=== PATIENT | female | born 1970 | race African-American/Black ===

== ENCOUNTER 2024-10-08 13:29 | Emergency (ER) | payer OTHER ==
[~2024-10-08] VITALS: Ht 175.3 cm; Wt 79.5 kg
[2024-10-08 13:30] VITALS: PULSE 82; RESP 18; O2SAT 96
[2024-10-08 13:34] VITALS: BP 136/86; PULSE 82; RESP 18; TEMP 97.7; O2SAT 96
--- NOTE | 2024-10-08 13:44 | ED.PDOC ---
Back pain HPI HPI Comments 53 y/o F, BIBA, with PMHx of myasthenia gravis and arthritis presents to the ED for CC of upper extremity. EMS reports, patient is coming from home where she c/o right trapezius and right shoulder pain onset, 0300 this morning (10/08/24). Patient relays, to have chronic pain in this area using lidocaine patches to try and relieve symptoms with no success. Patient relays, taking Gardner for pain however, has recently ran out of her prescription. Patient denies recent fall, injury, or trauma. No other symptoms or modifying factors present at this time. Chief Complaint: Upper Extremity Time Seen by MD: 13:35 Reviewed Notes: Nurses Notes, Pension Fund Manager Notes, Medications, Allergies Allergies: Coded Allergies: Aspirin (Verified Allergy, Mild, 10/08/24) Ibuprofen (Verified Allergy, Mild, 10/08/24) Sulfa Antibiotics (Verified Allergy, Mild, 10/08/24) Home Meds Active Scripts Hydrocodone-Acetaminophen (Hydrocodone Bitartrate/AC 5-325 mg) 1 Tab Tab, 1 TAB PO Q8HP PRN for 7 Days, #21 TAB Prov:JOSE ALBERTO ALICEA MD 10/08/24 Information Source: Patient Mode of Arrival: EMS Timing: Hours Duration: Since onset Location of Back pain: Other (right shoulder, right trapezius) Severity: Moderate Prehospital treatment: Other (lidocaine patch) Onset: Spontaneous History of: Arthritis Modifying Factors: Nothing Associated signs and symptoms: None Past Medical History PAST MEDICAL HISTORY: Arthritis Past Medical History (Other): Myasthenia gravis Surgical History: Cholecystectomy, Surgical History (Other): knee VIDEO GAME REPAIR TECHNICIAN History: Denies all VIDEO GAME REPAIR TECHNICIAN Hx Family History Family History: Unknown Social History Smoker: Cigarettes Alcohol: Occasionally Drugs: Denies Drug Use Lives In: Home Constitutional: denies: chills, diaphoresis, fatigue, fever, malaise, sweats, weakness, others EENTM: denies: blurred vision, double vision, ear bleeding, ear discharge, ear drainage, ear pain, ear ringing, eye pain, eye redness, hearing loss, mouth pain, mouth swelling, nasal discharge, nose bleeding, nose congestion, nose pain, photophobia, tearing, throat pain, throat swelling, voice changes, others Respiratory: denies: cough, hemoptysis, orthopnea, SOB at rest, shortness of breath, SOB with excertion, stridor, wheezing, others Cardiovascular: denies: chest pain, dizzy spells, diaphoresis, Dyspnea on exertion, edema, irregular heart beat, left arm pain, lightheadedness, palpitations, PND, syncope, others Gastrointestinal: denies: abdomen distended, abdominal pain, blood streaked bowels, constipated, diarrhea, dysphagia, difficulty swallowing, hematemesis, melena, nausea, poor appetite, poor fluid intake, rectal bleeding, rectal pain, vomiting, others Genitourinary: denies: abnormal vagina bleeding, burning, dyspareunia, dysuria, flank pain, frequency, hematuria, incontinence, pain, , vagina discharge, urgency, others Neurological: denies: dizziness, fainting, headache, left sided numbness, left sided weakness, numbness, paresthesia, pre-existing deficit, right sided numbness, right sided weakness, seizure, speech problems, tingling, tremors, weakness, others Musculoskeletal: reports: others (righ trapezius and right shoulder ); denies: back pain, gout, joint pain, joint swelling, muscle pain, muscle stiffness, neck pain Integumetry: denies: bruises, change in color, change in hair/nails, dryness, laceration, lesions, lumps, rash, wounds, others Allergic/Immunocompromised: denies: Difficulty Healing, Frequent Infections, H mayra, Itching, others Hematologic/Lymphatic: denies: anemia, blood clots, easy bleeding, easy bruising, swollen glands, others Endocrine: denies: excessive hunger, excessive sweating, excessive thirst, excessive urination, flushing, intolerance to cold, intolerance to heat, unexplained weight gain, unexplained weight loss, others Psychiatric: denies: anxiety, bipolar disorder, depression, hopeless, panic disorder, schizophrenia, sleepless, suicidal, others All Other Systems: Reviewed and Negative Physical Exam General Appearance: Mild Distress HEENT: Normal ENT Inspection, Pharynx Normal, TMs Normal Neck: Full Range of Motion, Non-Tender, Normal, Normal Inspection Respiratory: Chest Non-Tender, Lungs Clear, No Accessory Muscle Use, No Respiratory Distress, Normal Breath Sounds Cardiovascular: No Edema, No JVD, No Murmur, No Gallop, Normal Peripheral Pulses, Regular Rate/Rhythm Breast Exam: Deferred Gastrointestinal: No Organomegaly, Non Tender, No Pulsatile Mass, Normal Bowel Sounds, Soft Genitalia: Deferred Pelvic: Deferred Rectal: Deferred Extremities: No calf tenderness, Normal capillary refill, No pedal edema Musculoskeletal : Location: Right Apperance: Limited ROM, Tenderness: Mild Neurologic: Alert, sales marketing director II-XII nml as Tested, No Motor Deficits, Normal Affect, Normal Mood, No Sensory Deficits Cerebellar Function: Normal Reflexes: Normal Skin: Dry, Normal Color, Warm Lymphatic: No Adenopathy Was a procedure done? Was a procedure done?: No Back Pain Differential Dx Differential Diagnosis: Musculoskeletal Pain, Strain X-Ray, Labs, Meds, VS Vital Signs Date Time Temp Pulse Resp B/P (MAP) Pulse Ox O2 Delivery O2 Flow Rate FiO2 10/08/24 13:34 97.7 82 18 136/86 (103) 96 97.7 Time of 1ST Reevaluation: 14:05 Reevaluation 1ST: Unchanged Patient Education/Counseling: Diagnosis, Treatment, Prognosis, Need For Follow Up Family Education/Counseling: No Family Present Departure 1 Departure Time of Disposition: 13:57 Impression: Primary Impression: Right shoulder strain Qualified Codes: S46.911A - Strain of unspecified muscle, fascia and tendon at shoulder and upper arm level, right arm, initial encounter Disposition: HOME / SELF CARE / HOMELESS Condition: Fair e-Prescriptions Hydrocodone-Acetaminophen (Hydrocodone Bitartrate/AC 5-325 mg) 1 Tab Tab 1 TAB PO Q8HP PRN for 7 Days, #21 TAB Prov: JOSE ALBERTO ALICEA MD 10/08/24 Discharged With: Self Critical Care Note Critical Care Time?: No Stability Stability form required: No Heart Score Heart Score: Heart Score Response (Comments) Value History N/A 0 EKG N/A 0 Age N/A 0 Risk Factors N/A 0 Troponin N/A 0 Total 0 I personally scribed for JOSE ALBERTO ALICEA MD ([email or web address]) on 10/08/24 at 13:44. Electronically submitted by Herlinda Blanchard ([email or web address]). JOSE ALBERTO ALICEA MD Oct 08, 2024 13:44
[2024-10-08] MEDS ORDERED: HYDR-4902 PO (13:53)
[2024-10-08] MEDS: HYDROcodone-ACET 10/325MG TAB PO ONE (13:55)
== END 2024-10-08 14:29 | disposition home or self-care (01) ==
LOC: EDBD 13:29 → ER 13:29
DX: S46.911A Strain of unspecified muscle, fascia and tendon at shoulder and upper arm level, right arm, initial encounter (principal); F17.210 Nicotine dependence, cigarettes, uncomplicated; F10.90 Alcohol use, unspecified, uncomplicated; G70.00 Myasthenia gravis without (acute) exacerbation; M19.90 Unspecified osteoarthritis, unspecified site; Z88.2 Allergy status to sulfonamides; Z88.6 Allergy status to analgesic agent; Z90.49 Acquired absence of other specified parts of digestive tract; Z98.890 Other specified postprocedural states; Z79.899 Other long term (current) drug therapy; X58.XXXA Exposure to other specified factors, initial encounter; Y93.89 Activity, other specified; Y92.89 Other specified places as the place of occurrence of the external cause; Y99.8 Other external cause status; Y90.9 Presence of alcohol in blood, level not specified

== ENCOUNTER 2024-11-30 08:14 | Emergency (ER) | payer OTHER ==
[~2024-11-30] VITALS: Ht 175.3 cm; Wt 88.6 kg
[~2024-11-30 08:14] MED LIST: HYDR-4902 PO
[2024-11-30 08:20] VITALS: TEMP 97.7
[2024-11-30] MEDS ORDERED: ACET500T58 PO (09:30)
[2024-11-30] MEDS ORDERED: AZIT-43 PO (09:30)
--- NOTE | 2024-11-30 09:31 | ED.PDOC ---
Eye-HPI HPI Comments This is a 54 year old female presenting to the ED with chief complaint of sore throat. Patient reports that she has been experiencing right sided throat pain for the past 2 weeks, attributing it to her tonsils which have frequent infections. Patient states Tylenol has provided pain relief every 6 hours. Patient denies any sick contacts Denies chest pain shortness of breath Denies inability to move neck, history of meningitis Denies difficulty swallowing nor persistent salivation Denies fevers chills night sweats Denies persistent cough, runny nose, congestion Denies loss of appetite, unintentional weight loss over the past 3 months Denies voice changes Chief Complaint: Sore Throat Time Seen by MD: 09:26 Primary Care Provider: UTE Godinez Notes: Nurses Notes, Medications, Allergies Allergies: Coded Allergies: Aspirin (Verified Allergy, Mild, 10/08/24) Ibuprofen (Verified Allergy, Mild, 10/08/24) Sulfa Antibiotics (Verified Allergy, Mild, 10/08/24) Home Meds Active Scripts Acetaminophen (Acetaminophen) 500 Mg Tab, 500 MG PO Q6HP PRN for 10 Days, #40 TAB 0 Refills Prov:RANDAL REDDY NP 11/30/24 Azithromycin (Azithromycin) 250 Mg Tab, 250 MG PO DAILY MDD 500 for 5 Days, #6 TAB 0 Refills 2 TABLETS ORALLY ON DAY ONE, THEN 1 TABLET ORALLY DAILY FOR 4 DAYS Prov:RANDAL REDDY NP 11/30/24 Hydrocodone-Acetaminophen (Hydrocodone Bitartrate/AC 5-325 mg) 1 Tab Tab, 1 TAB PO Q8HP PRN for 7 Days, #21 TAB Prov:JOSE ALBERTO ALICEA MD 10/08/24 Information Source: Patient Mode of Arrival: Ambulatory Timing: Weeks Duration: Since onset Prehospital treatment: None Quality: Pain Mouth Location: Pharynx Oropharynx: Red Onset: Spontaneous Throat Exposed to: None Eye Context Recent: Recurrent sore throat History of: None Associated signs and symptoms: Sore Throat Past Medical History PAST MEDICAL HISTORY: Arthritis, Asthma Past Medical History (Other): Heart arrhythmia, geographic tongue, Graves Disease, Myasthenia Gravis Surgical History: Cholecystectomy, Surgical History (Other): Knee surgery SHOP LABORER History: Denies all SHOP LABORER Hx Family History Family History: Reviewed,noncontributory to illness, Unknown Social History Smoker: Cigarettes Alcohol: Occasionally Drugs: Denies Drug Use Lives In: Home Physical Exam Exam Comments Uvula midline, no airway obstruction General Appearance: No Apparent Distress, Normal HEENT: Normal ENT Inspection, Pharyngeal Erythema, TMs Normal Neck: Full Range of Motion, Non-Tender, Normal, Normal Inspection Respiratory: Chest Non-Tender, Lungs Clear, No Accessory Muscle Use, No Respiratory Distress, Normal Breath Sounds Cardiovascular: No Murmur, No Gallop, Regular Rate/Rhythm Breast Exam: Deferred Gastrointestinal: No Organomegaly, Non Tender, No Pulsatile Mass, Normal Bowel Sounds, Soft Genitalia: Deferred Pelvic: Deferred Rectal: Deferred Extremities: No calf tenderness, Normal capillary refill, Normal inspection, Normal range of motion, Non-tender, No pedal edema Musculoskeletal : Apperance: Normal Neurologic: Alert, recycling collections driver II-XII nml as Tested, No Motor Deficits, Normal Affect, Normal Mood, No Sensory Deficits Cerebellar Function: Normal Reflexes: Normal Skin: Dry, Normal Color, Warm Lymphatic: No Adenopathy Was a procedure done? Was a procedure done?: No EENT DIFF Eye: N/A Ear: N/A Nose: N/A Mouth: N/A Sore Throat: Pharyngitis, Streptococcal, Viral Pharyngitis, URI X-Ray, Labs, Meds, VS Vital Signs Date Time Temp Pulse Resp B/P (MAP) Pulse Ox O2 Delivery O2 Flow Rate FiO2 11/30/24 09:52 54 18 98 Room Air 11/30/24 09:52 54 18 124/59 (80) 98 11/30/24 08:20 97.7 65 12 127/64 96 97.7 X-Ray, Labs, Meds, VS Comment This is a 54 year old female presenting to the ED with chief complaint of sore throat. Patient arrives alert and oriented, ABC's intact, afebrile, vital signs stable, saturating well in room air Patient is stable for discharge at this time. External notes reviewed. Test results and diagnostic imaging interpreted. All diagnostic findings, discharge care, education and instructions provided Follow-up with PCP in 2 to 3 days Patient verbalized understanding and agreed to treatment plan Vital signs stable, afebrile, no acute distress noted Patient ambulatory with strong steady gait Advised to return precautions for any new or worsening symptoms, return to ER immediately for re-evaluation Patient is aware that the purpose of this visit was for an acute medical emergency requiring emergent stabilization. Chronic conditions, including malignancies have not been ruled out. Patient is instructed to follow up with PCP as directed and discharge instructions for continued care and workup. If unable to arrange follow-up, patient is to return to the emergency department for reassessment. Patient (parent or legal guardian if applicable) was given verbal and written discharge instructions and acknowledges understanding. Additional MDM Review of External, Non-ED records: External records reviewed. Discussion with independent historian (EMS, family) history obtained from the patient/parents (if applicable) at bedside Chronic conditions affecting care: None Social determinants of health affecting care: None Consideration of admission (observation or admission): I considered escalation of care to admission for this patient, however given the reassuring workup, the patient is safe for outpatient management. Time of 1ST Reevaluation: 09:30 Reevaluation 1ST: Improved Patient Education/Counseling: Diagnosis, Treatment Family Education/Counseling: No Family Present SEPSIS Sepsis Screen Date sepsis recognized/suspect: Nov 30, 2024 Time Sepsis recognized/suspect: 819 Recent Procedure: No On Antibiotic Therapy: No Respiratory Rate >20: No Heart Rate >90: No Temp<36 C (96.8 F) or >38.3 C: No SBP <90 or MAP <65 mmHG: No New Acute Mental Status Change: No Is the patient on CPAP, BIPAP,: No Vital Signs Date Time Temp Pulse Resp B/P (MAP) Pulse Ox O2 Delivery O2 Flow Rate FiO2 11/30/24 09:52 54 18 98 Room Air 11/30/24 09:52 54 18 124/59 (80) 98 11/30/24 08:20 97.7 65 12 127/64 96 97.7 Departure 1 Departure Time of Disposition: :28 Impression: Primary Impression: Pharyngitis Qualified Codes: J02.9 - Acute pharyngitis, unspecified Disposition: HOME / SELF CARE / HOMELESS Condition: Stable e-Prescriptions Acetaminophen (Acetaminophen) 500 Mg Tab 500 MG PO Q6HP PRN for 10 Days, #40 TAB 0 Refills Prov: RANDAL REDDY NP 11/30/24 Azithromycin (Azithromycin) 250 Mg Tab 250 MG PO DAILY MDD 500 for 5 Days, #6 TAB 0 Refills 2 TABLETS ORALLY ON DAY ONE, THEN 1 TABLET ORALLY DAILY FOR 4 DAYS Prov: RANDAL REDDY NP 11/30/24 Discharged With: Self Critical Care Note Critical Care Time?: No Stability Stability form required: No Heart Score Heart Score: Heart Score Response (Comments) Value History N/A 0 EKG N/A 0 Age N/A 0 Risk Factors N/A 0 Troponin N/A 0 Total 0 I personally scribed for RANDAL REDDY SUPERVISOR WET ROOM ([email or web address]) on 11/30/24 at 09:31. Electronically submitted by Tomas Patel ([email or web address]). I personally scribed for RANDAL REDDY NP ([email or web address]) on 11/30/24 at 09:46. Electronically submitted by Tomas Patel ([email or web address]). RANDAL REDDY NP Nov 30, 2024 09:31
[2024-11-30 09:52] VITALS: BP 124/59; PULSE 54; RESP 18; O2SAT 98
== END 2024-11-30 09:53 | disposition home or self-care (01) ==
LOC: ER 08:14
DX: J02.9 Acute pharyngitis, unspecified (principal); Z88.6 Allergy status to analgesic agent; Z88.2 Allergy status to sulfonamides; Z90.49 Acquired absence of other specified parts of digestive tract; J45.909 Unspecified asthma, uncomplicated; F17.210 Nicotine dependence, cigarettes, uncomplicated

== ENCOUNTER 2024-12-25 10:10 | Emergency (ER) | payer OTHER ==
[~2024-12-25] VITALS: Ht 175.3 cm; Wt 88.9 kg
[~2024-12-25 10:10] MED LIST changes: +ACET500T58 PO; +AZIT-43 PO
--- NOTE | 2024-12-25 10:31 | ED.PDOC ---
Back pain HPI HPI Comments This is a 54 year old female presenting to the ED with chief complaint of back pain. Patient reports that she has been experiencing lower back pain for the past 4 days. Patient relays that she has trouble moving around and taking care of her son due to the pain. Patient relays that she has history of chronic lower back pain, being prescribed [place] 5/325mg PO by her doctor for pain control. Patient denies any numbness, weakness, tingling, fall, or injury at this time. Chief Complaint: Back Pain Time Seen by MD: 10:28 Primary Care Provider: UTE Reviewed Notes: Nurses Notes, Medications, Allergies Allergies: Coded Allergies: Aspirin (Verified Allergy, Mild, 10/08/24) Ibuprofen (Verified Allergy, Mild, 10/08/24) Sulfa Antibiotics (Verified Allergy, Mild, 10/08/24) Home Meds Active Scripts Acetaminophen (Acetaminophen) 500 Mg Tab, 500 MG PO Q6HP PRN for 10 Days, #40 TAB 0 Refills Prov:RANDAL REDDY NP 11/30/24 Azithromycin (Azithromycin) 250 Mg Tab, 250 MG PO DAILY MDD 500 for 5 Days, #6 TAB 0 Refills 2 TABLETS ORALLY ON DAY ONE, THEN 1 TABLET ORALLY DAILY FOR 4 DAYS Prov:RANDAL REDDY NP 11/30/24 Hydrocodone-Acetaminophen (Hydrocodone Bitartrate/AC 5-325 mg) 1 Tab Tab, 1 TAB PO Q8HP PRN for 7 Days, #21 TAB Prov:JOSE ALBERTO ALICEA MD 10/08/24 Information Source: Patient Mode of Arrival: Ambulatory Timing: Days Duration: Since onset Location of Back pain: (B) Lower back Severity: Moderate Prehospital treatment: None Quality: Aching Onset: Spontaneous Circumstance: Other History of: Chronic Back Pain Past Medical History PAST MEDICAL HISTORY: Arthritis, Asthma, Seizures Past Medical History (Other): chronic lower back pain Surgical History: Cholecystectomy, CUSTOMER RETENTION SPECIALIST History: Denies all CUSTOMER RETENTION SPECIALIST Hx Family History Family History: Reviewed,noncontributory to illness, Unknown Social History Smoker: Cigarettes Alcohol: Occasionally Drugs: Denies Drug Use Lives In: Home Constitutional: denies: chills, diaphoresis, fatigue, fever, malaise, sweats, weakness, others EENTM: denies: blurred vision, double vision, ear bleeding, ear discharge, ear drainage, ear pain, ear ringing, eye pain, eye redness, hearing loss, mouth pain, mouth swelling, nasal discharge, nose bleeding, nose congestion, nose pain, photophobia, tearing, throat pain, throat swelling, voice changes, others Respiratory: denies: cough, hemoptysis, orthopnea, SOB at rest, shortness of breath, SOB with excertion, stridor, wheezing, others Cardiovascular: denies: chest pain, dizzy spells, diaphoresis, Dyspnea on exe rtion, edema, irregular heart beat, left arm pain, lightheadedness, palpitations, PND, syncope, others Gastrointestinal: denies: abdomen distended, abdominal pain, blood streaked bowels, constipated, diarrhea, dysphagia, difficulty swallowing, hematemesis, melena, nausea, poor appetite, poor fluid intake, rectal bleeding, rectal pain, vomiting, others Genitourinary: denies: abnormal vagina bleeding, burning, dyspareunia, dysuria, flank pain, frequency, hematuria, incontinence, pain, , vagina discharge, urgency, others Neurological: denies: dizziness, fainting, headache, left sided numbness, left sided weakness, numbness, paresthesia, pre-existing deficit, right sided numbness, right sided weakness, seizure, speech problems, tingling, tremors, weakness, others Musculoskeletal: reports: back pain; denies: gout, joint pain, joint swelling, muscle pain, muscle stiffness, neck pain, others Integumetry: denies: bruises, change in color, change in hair/nails, dryness, laceration, lesions, lumps, rash, wounds, others Allergic/Immunocompromised: denies: Difficulty Healing, Frequent Infections, Hives, Itching, others Hematologic/Lymphatic: denies: anemia, blood clots, easy bleeding, easy bruising, swollen glands, others Endocrine: denies: excessive hunger, excessive sweating, excessive thirst, excessive urination, flushing, intolerance to cold, intolerance to heat, unexplained weight gain, unexplained weight loss, others Psychiatric: denies: anxiety, bipolar disorder, depression, hopeless, panic disorder, schizophrenia, sleepless, suicidal, others All Other Systems: Reviewed and Negative Physical Exam General Appearance: Mild Distress, Moderate Distress, Normal HEENT: Normal ENT Inspection, PERRL/EOMI, Pharynx Normal, TMs Normal Neck: Full Range of Motion, Non-Tender, Normal, Normal Inspection Respiratory: Chest Non-Tender, Lungs Clear, No Accessory Muscle Use, No Respiratory Distress, Normal Breath Sounds Cardiovascular: No Edema, No JVD, No Murmur, No Gallop, Normal Peripheral Pulses, Regular Rate/Rhythm Breast Exam: Deferred Gastrointestinal: No Organomegaly, Non Tender, No Pulsatile Mass, Normal Bowel Sounds, Soft Genitalia: Deferred Pelvic: Deferred Rectal: Deferred Extremities: No calf tenderness, Normal capillary refill, Normal inspection, Normal range of motion, Non-tender, No pedal edema Musculoskeletal : Location: Bilateral Extremity Location: Back, Leg Apperance: Normal Neurologic: Alert, electrician research II-XII nml as Tested, Depressed Affect, No Motor Deficits, Normal Affect, Normal Mood, No Sensory Deficits, Other (Radiculitis) Cerebellar Function: NOT DONE Reflexes: Normal, NOT DONE Skin: Dry, Normal Color, Warm Peripheral Pulses: 1+ carotid (R), 1+ carotid (L) Lymphatic: No Adenopathy Was a procedure done? Was a procedure done?: No Back Pain Differential Dx Differential Diagnosis: DJD, Musculoskeletal Pain, Strain X-Ray, Labs, Meds, VS Vital Signs Date Time Temp Pulse Resp B/P (MAP) Pulse Ox O2 Delivery O2 Flow Rate FiO2 12/25/24 10:11 98.2 79 18 140/98 95 98.2 X-Ray, Labs, Meds, VS Comment Patient came in with a severe pain to the back she has chronic back pain with a exacerbation at this time Patient will be medicated and discharged home Time of 1ST Reevaluation: 10:58 Reevaluation 1ST: Unchanged Consultation: PCP Patient Education/Counseling: Diagnosis, Treatment, Prognosis, Need For Follow Up Family Education/Counseling: Diagnosis, Treatment, Prognosis, Need For Follow Up, No Family Present SEPSIS Sepsis Screen Date sepsis recognized/suspect: Dec 25, 2024 Time Sepsis recognized/suspect: 1013 Recent Procedure: No On Antibiotic Therapy: No Respiratory Rate >20: No Heart Rate >90: No Temp<36 C (96.8 F) or >38.3 C: No SBP <90 or MAP <65 mmHG: No New Acute Mental Status Change: No Is the patient on CPAP, BIPAP,: No Physician Orders Ketorolac Injection (Toradol Injection) (12/25/24 10:45) Vital Signs Date Time Temp Pulse Resp B/P (MAP) Pulse Ox O2 Delivery O2 Flow Rate FiO2 12/25/24 10:11 98.2 79 18 140/98 95 98.2 Departure 1 Departure Time of Disposition: 10:38 Impression: Primary Impression: Acute exacerbation of chronic low back pain Disposition: HOME / SELF CARE / HOMELESS Condition: Fair Additional Instructions: Local heat and rest your back No lifting no bending e-Prescriptions Hydrocodone-Acetaminophen (Hydrocodone Bitartrate/AC 5-325 mg) 1 Tab Tab 1 TAB PO BID for 7 Days, #14 TAB Prov: PRABHJOT WINTER MD 12/25/24 Cyclobenzaprine Hcl (Cyclobenzaprine Hcl) 10 Mg Tab 10 MG PO TID for 10 Days, #30 TAB Prov: PRABHJOT WINTER MD 12/25/24 Discharged With: Self Critical Care Note Critical Care Time?: No Stability Stability form required: No Heart Score Heart Score: Heart Score Response (Comments) Value History N/A 0 EKG N/A 0 Age 45-64 1 Risk Factors 1 or 2 risk factors 1 Troponin N/A 0 Total 2 I personally scribed for PRABHJOT WINTER MD ([email or web address]) on 12/25/24 at 10:31. Electronically submitted by Tomas Patel ([email or web address]). I personally scribed for PRABHJOT WINTER MD ([email or web address]) on 12/25/24 at 10:32. Electronically submitted by Tomas Patel ([email or web address]). PRABHJOT WINTER MD Dec 25, 2024 10:31
[2024-12-25] MEDS ORDERED: CYCL-839 PO (10:41)
[2024-12-25] MEDS ORDERED: HYDR-4902 PO (10:41)
[2024-12-25 10:45] VITALS: BP 110/77; PULSE 66; RESP 20; TEMP 98.6; O2SAT 92
[2024-12-25] MEDS ORDERED: KETOROLAC TROMETH 60MG/2ML VIAL IM ONE (10:45)
[2024-12-25] MEDS: HYDROcodone-ACET 10/325MG TAB PO ONE (10:46)
== END 2024-12-25 10:55 | disposition home or self-care (01) ==
LOC: ER 10:10
DX: G89.29 Other chronic pain (principal); F17.210 Nicotine dependence, cigarettes, uncomplicated; J45.909 Unspecified asthma, uncomplicated; M19.90 Unspecified osteoarthritis, unspecified site; F10.90 Alcohol use, unspecified, uncomplicated; Z79.899 Other long term (current) drug therapy; Z90.49 Acquired absence of other specified parts of digestive tract; Z88.6 Allergy status to analgesic agent; Z88.2 Allergy status to sulfonamides; Y90.9 Presence of alcohol in blood, level not specified